=== PATIENT | female | born 1980 | race Caucasian/White ===

== ENCOUNTER 2018-12-06 23:56 | Emergency (ER) | payer SELFPAY ==
[~2018-12-06] VITALS: Ht 157.5 cm; Wt 90.9 kg
[~2018-12-06 23:56] MED LIST: NORCO 10/325 TA1 TA1 PO; PRINIVIL20 MG PO; ULTRAM50 MG PO
[2018-12-07] VITALS: Ht 157.5 cm; Wt 90.9 kg
[2018-12-07] MEDS ORDERED: KLONOPIN0.5 MG PO (00:02)
[2018-12-07 00:56] LABS: INR 0.95 (0.85-1.17); PROTIME 12.2 SECONDS (11.6-15.0)
[2018-12-07 00:57] LABS: APTT 26.7 SECONDS (22.8-39.4); BASOPHILS 0.6 % (0-2); EOSINOPHILS 2.4 % (0-7); HEMATOCRIT 39.4 % (36.0-48.0); HEMOGLOBIN 13.1 g/dL (12-16); IMMATURE GRANULOCYTES 0.3 % (0-5); LYMPHOCYTES 31.8 % (15-50); MCH 30.7 pg (26.0-34.0); MCHC 33.2 g/dL (31.0-37.0); MCV 92.3 fL (80.0-100.0); MEAN PLATELET VOLUME 10.5 fL (7.4-10.4); MONOCYTES 8.4 % (2-11); NEUTROPHILS 56.5 % (40-80); PLATELET COUNT 283 10x3/uL (130-400); RBC 4.27 10x6/uL (4.00-5.40); RDW 12.4 % (11.5-14.5); WBC 9.3 10x3/uL (4.8-10.8)
[2018-12-07 00:58] LABS: ALBUMIN 3.7 g/dL (3.4-5.0); ALKALINE PHOSPHATASE 45 U/L (46-116); ALT (SGPT) 28 U/L (10-68); BILIRUBIN - TOTAL 0.15 mg/dL (0.2-1.3); CALC OSMOLALITY 287 mosm/kg (275-300); CALCIUM 8.8 mg/dL (8.5-10.1); CARBON DIOXIDE 24.6 mmol/L (21.0-32.0); CHLORIDE - SERUM 103 mmol/L (98-107); CREATININE - SERUM 0.8 mg/dL (0.6-1.3); GLUCOSE 179 mg/dL (74-106); POTASSIUM - SERUM 3.5 mmol/L (3.5-5.1); PROTEIN - SERUM 7.6 g/dL (6.4-8.2); SODIUM 142 mmol/L (136-145); UREA NITROGEN 14 mg/dL (7-18); eGFR NON AFRICAN AMERICAN 84 mL/min (90-120)
[2018-12-07 01:14] LABS: CKMB 0.6 U/L (0.0-3.6); CREATINE KINASE 72 UL (21-215); MAGNESIUM - SERUM 1.8 mg/dL (1.8-2.4); THYROID STIMULATING HORMONE 3.26 uIU/mL (0.36-3.74)
[2018-12-07 01:16] LABS: TROPONIN-I < 0.017 ng/mL (0.000-0.060)
[2018-12-07 01:20] LABS: APPEARANCE CLEAR (CLEAR); BILIRUBIN NEGATIVE (NEGATIVE); COLOR YELLOW (YELLOW); GLUCOSE NEGATIVE (NEGATIVE); KETONE NEGATIVE (NEGATIVE); NITRITE NEGATIVE (NEGATIVE); PROTEIN NEGATIVE (NEGATIVE); UROBILINOGEN NORMAL (NORMAL)
[2018-12-07 02:16] VITALS: BP 136/83
== END 2018-12-07 02:16 | disposition home or self-care (01) ==
LOC: D.ER 23:56
PROVIDERS: Family Medicine
DX: F41.9 Anxiety disorder, unspecified (principal); R00.2 Palpitations; I10 Essential (primary) hypertension; F17.200 Nicotine dependence, unspecified, uncomplicated

== ENCOUNTER 2019-04-27 21:35 | Emergency (ER) | payer MEDICAID ==
[~2019-04-27] VITALS: Ht 157.5 cm; Wt 100.0 kg
[~2019-04-27 21:35] MED LIST changes: +KLONOPIN0.5 MG PO
[2019-04-27 21:51] VITALS: Ht 157.5 cm; Wt 100.0 kg
[2019-04-28 02:30] VITALS: BP 159/96
== END 2019-04-28 00:42 | disposition home or self-care (01) ==
LOC: D.ER 21:35
DX: R51 Headache (principal)